=== PATIENT | male | born 1955 | race Caucasian/White ===

== ENCOUNTER 2019-09-02 06:57 | Day surgery (SDC) | payer OTHER ==
[~2019-09-02] VITALS: Ht 182.9 cm; Wt 101.6 kg
[~2019-09-02 06:57] MED LIST: AMIO200T37 PO; CARV6.25 PO; ELIQ5TAB PO; ENTR1TAB7 PO; FURO20TA2 PO; LR 1,000 ML IV ONE; OMEP-221 PO; ROSU20TA5 PO
[2019-09-02] MEDS ORDERED: PROPOFOL 200 MG/20 ML VIAL As Ordered ONE (07:16)
[2019-09-02] MEDS ORDERED: LIDOCAINE 2% INJ 100 MG/5 ML SDV (FOR ANES.) As Ordered ONE (07:16)
[2019-09-02] MEDS ORDERED: ONDANSETRON 4MG/2ML VIAL (J2405) IV PRN (09:30)
[2019-09-02] MEDS ORDERED: fentaNYL 100 MCG/2 ML INJECTION (J3010) IV PRN (09:30)
[2019-09-02] MEDS ORDERED: LR 1,000 ML IV SCH (09:30)
--- NOTE | 2019-09-02 09:46 | RO ---
DATE OF PROCEDURE: 09/02/2019 TITLE OF PROCEDURE: Direct-current cardioversion. PERFORMING CONDITIONER TUMBLER OPERATOR: Dr. Dev Weldon ANESTHETIOLOGIST: Dr. Huy Bolton PREOPERATIVE DIAGNOSIS: Persistent atrial fibrillation. POSTOPERATIVE DIAGNOSIS: Successful conversion to sinus rhythm. CLINICAL SUMMARY: This 64-year-old, , resident of [place], [place] with underlying hypertensive and aortic valvular heart disease, abnormal EKG, new onset of atrial fibrillation 06/12/2019 complicated by heart failure (systolic and diastolic) has been followed closely through my practice. Has a history of moderate alcoholism. He initially presented to [facility] in [place] with atrial fibrillation and rapid ventricular response, rate 125 beats per minute (bpm). Echocardiogram at that time showed mild left ventricular hypertrophy (LVH) with severe global LV hypokinesis, mild left atrial enlargement, normal pulmonary atrial pressures, aortic valvular sclerosis and mild to moderate aortic insufficiency and moderate mitral annular calcification with trace insufficiency. With combination medical therapy his rate was controlled and we started on oral anticoagulant therapy. A pharmacological stress heart scan was performed because of abnormal EKG and heart failure 07/23/2019 and showed no low-level exercise/pharmacologically induced chest pain with peak heart rate 141, blood pressure 120/70. Baseline repolarization abnormalities became more prominent but the patient remained in atrial fibrillation with nuclear images showing a mildly dilated left ventricle with global hypokinesis, left ventricular ejection fraction (LVEF) of 34% and subtle fixed inferoapical abnormalities suspected to be due to chest wall and diaphragmatic attenuation. No reversible perfusion abnormality suggests inducible ischemia. 07/23/2019, the patient was started on amiodarone antiarrhythmic therapy in addition to his carvedilol and Eliquis. His signs and symptoms of congestion have completely resolved. The patient has been restored to active lifestyle working full-time without cardiovascular complaint. He was last seen in my office with EKG showing persistent atrial fibrillation but controlled ventricular response averaging 70 bpm. In light of his persistent atrial fibrillation despite antiarrhythmic therapy, his current electrocardioversion was arranged. DESCRIPTION OF PROCEDURE: In a fasting state following informed consent and EKG showing ongoing atrial fibrillation with controlled ventricular response, the patient was taken to the recovery room and connected to a bedside EKG, blood pressure and oxygen saturation monitoring system. Self-adhesive cardioverting/defibrillating pads were applied in an anteroposterior configuration and connected to a bedside cardioverter defibrillator. IV sedation was given by anesthesia and once the patient was adequately sedated a single synchronized direct current shock was administered (200 joules) with successful conversion to sinus rhythm/sinus bradycardia at 50 bpm. Blood pressure 119/68, respiratory rate 16, oxygen saturation was 98% on supplemental oxygen. Within minutes the patient's awareness was completely restored with no complaints. No complications. Post cardioversion EKG showed sinus bradycardia at 50 bpm with left atrial conduction disturbance. First-degree atrioventricular (AV) block with WI interval 224 ms, low in voltages with slow precordial R wave progression and persistent S waves in V5 and V6 in keeping with his body habitus. At this point, the patient will be resuming his customary modest salt and caloric intake restriction. He will perform only light activities of daily living today and be able to resume his customary activities tomorrow. His medications will continue carvedilol 6.25 mg twice a day, Entresto 49-51 mg 1 tablet twice a day, Lasix 20 mg daily, amiodarone 200 mg by mouth twice a day and Eliquis 5 mg twice a day with Crestor 20 mg nightly. He has a followup appointment in my office for 09/17/2019 and 9:30 a.m. Should he have any questions or concerns we have requested he contact our office. MICHELLE
[2019-09-02 10:47] VITALS: BP 135/64
--- NOTE | 2019-09-02 17:09 | ECGEPIP ---
[facility] Test Date: 2019-09-02 Pat Name: JE FAGAN Department: Room: - Gender: Male [employer]: [facility] : 1955 Requested By: Dev Weldon Order Number: [id number] Reading MD: Thierno Dominguez Measurements Intervals [place] Rate: 76 P: SD: 0 QRS: 42 QRSD: 108 T: 70 QT: 394 QTc: 444 Interpretive Statements ATRIAL FIBRILLATION Delayed anterior R wave progression Septal Q waves consider previous septal ischemia Comparison tracing not on file Electronically Signed on 09-02-2019 17:09:27 EST by Thierno Dominguez
--- NOTE | 2019-09-02 17:13 | ECGEPIP ---
[facility] Test Date: 2019-09-02 Pat Name: JE FAGAN Department: Room: - Gender: Male Clinical Staff Rn: [facility] : 1955 Requested By: Dev Weldon Order Number: [id number] Reading MD: Thierno Dominguez Measurements Intervals [place] Rate: 50 P: -8 AK: 224 QRS: 52 QRSD: 114 T: 60 QT: 474 QTc: 432 Interpretive Statements SINUS BRADYCARDIA WITH SINUS ARRHYTHMIA WITH FIRST DEGREE AV BLOCK MODERATE INTRAVENTRICULAR CONDUCTION DELAY Delayed anterior R wave progression Septal Q waves, consider previous septal ischemia Rate decreased and rhythm change from tracing done 737 on the same date Electronically Signed on 09-02-2019 17:13:36 EST by Thierno Dominguez
== END 2019-09-02 10:50 | disposition home or self-care (01) ==
LOC: M SDC 06:57
PROVIDERS: ATTEND Internal Medicine Cardiovascular Disease
DX: I48.19 Other persistent atrial fibrillation (principal); I10 Essential (primary) hypertension; E78.5 Hyperlipidemia, unspecified; Z79.01 Long term (current) use of anticoagulants; Z79.899 Other long term (current) drug therapy

== ENCOUNTER → 2023-11-03 | Outpatient (CLI) | payer MEDICARE, OTHER ==
[~2023-11-03] MED LIST changes: -LR 1,000 ML IV ONE; -OMEP-221 PO; +OMEP40CA5 PO; -ROSU20TA5 PO; +ROSU20TA61 PO
== END ==
LOC: M CARPUL 08:52
PROVIDERS: ATTEND Physician Assistant
DX: I35.2 Nonrheumatic aortic (valve) stenosis with insufficiency (principal); Z95.3 Presence of xenogenic heart valve